=== PATIENT | female | born 1935 | race African-American/Black ===

== ENCOUNTER 2016-12-03 15:08 | Emergency (ER) | payer OTHER ==
[~2016-12-03] VITALS: Ht 165.1 cm; Wt 102.0 kg
[~2016-12-03 15:08] MED LIST: ALBU6.7H INH; BUPR150T3 PO; CLOT15CR4 TP; FELO5TAB PO; FURO20TA4 PO; GABA-533 PO; RANI150T7 PO
[2016-12-03] MEDS ORDERED: ACETAMINOPHEN 325MG TABLET PO ONE (18:15)
[2016-12-03 19:40] VITALS: BP 126/79
== END 2016-12-03 20:27 | disposition left against medical advice (07) ==
LOC: ER 16:04
DX: M79.671 Pain in right foot (principal); W01.0XXA Fall on same level from slipping, tripping and stumbling without subsequent striking against object, initial encounter; Y93.89 Activity, other specified; Y92.89 Other specified places as the place of occurrence of the external cause; I10 Essential (primary) hypertension; Z90.710 Acquired absence of both cervix and uterus; Z98.890 Other specified postprocedural states
CPT/HCPCS: 73630; 99284

== ENCOUNTER 2018-09-23 01:17 | Inpatient (IN) | payer OTHER ==
[~2018-09-23] VITALS: Ht 157.5 cm; Wt 112.2 kg
[2018-09-23] MEDS ORDERED: ONDANSETRON HCL 4MG/2ML INJ IV STA (01:33)
[2018-09-23] MEDS ORDERED: METHYLPREDNISOLONE SOD SUCC 125 MG/2 ML VIAL IV STA (01:33)
[2018-09-23] MEDS ORDERED: IPRATROPIUM BROMIDE (0.02%) 0.5MG/2.5ML NEB HHN STA (01:33)
[2018-09-23] MEDS ORDERED: MAGNESIUM 2 G PREMIX 50 ML IV ONE (01:45)
[2018-09-23] MEDS: ALBUTEROL (0.083%) 2.5MG/3ML NEB HHN SCH ×3 (01:55→04:50)
[2018-09-23 02:01] LABS: BG CARBOXYHEMOGLOBIN 0.8 % (0.5-1.5); BG DEOXYHEMOGLOBIN 8.6 % (0.0-5.0); BG FRACTION INSPIRED OXYGEN 40; BG HCO3 ACT 28.4 mmol/L (22.0-26.0); BG METHEMOGLOBIN 0.4 % (0.0-1.5); BG OXYGEN SATURATION 91.3 % (92.0-98.5); BG OXYHEMOGLOBIN 90.2 % (94.0-97.0); BG PCO2 51.7 mmHg (35.0-45.0); BG PH 7.358 (7.350-7.450); BG PO2 67.2 mmHg (75.0-100.0); BG SAMPLE SITE RIGHT RADIAL; BG TOTAL HEMOGLOBIN 13.2 g/dL (12.0-18.0); BG VENT MODE NASAL CANNULA
[2018-09-23 02:15] LABS: BASOPHILS % 0.5 % (0.0-2.0); EOSINOPHILS % 6.5 % (0.0-5.0); HEMOGLOBIN. 12.7 g/dL (12.0-16.0); LYMPHOCYTES % 26.5 % (20.0-50.0); MEAN CORPUSCULAR HEMOGLOBIN 29.2 pg (28.0-32.0); MEAN CORPUSCULAR VOLUME 92.5 fL (81.0-99.0); MEAN PLATELET VOLUME 9.1 fl (7.4-10.4); NEUTROPHILS % 56.5 % (40.0-76.0); PLATELET 235 x1000/uL (130-400); RED BLOOD CELL COUNT 4.33 mill/uL (4.2-5.4); RED CELL DISTRIBUTION WIDTH 14.7 % (11.6-14.6)
[2018-09-23 02:18] LABS: CHLORIDE 103 mEq/L (98-107)
[2018-09-23] MEDS ORDERED: IPRATROPIUM/ALBUTEROL 0.5-3(2.5)MG/3ML NEB ONE (13:25)
[2018-09-23] MEDS ORDERED: ONDANSETRON HCL 4MG/2ML INJ IV PRN (16:45)
[2018-09-23] MEDS ORDERED: DIPHENHYDRAMINE 50MG/ML VIAL IV PRN (16:45)
[2018-09-23] MEDS ORDERED: DOCUSATE SODIUM 100MG CAPSULE PO PRN (16:45)
[2018-09-23] MEDS ORDERED: HYDROCODONE/ACETAMINOPHEN 5/325MG TABLET PO PRN (16:45)
[2018-09-23] MEDS ORDERED: LORAZEPAM 0.5MG TABLET PO PRN (16:45)
[2018-09-23] MEDS ORDERED: CLONIDINE 0.1MG TABLET PO PRN (16:45)
[2018-09-23] MEDS ORDERED: CEFTRIAXONE 1 G PREMIX 50 ML IV SCH (16:45)
[2018-09-23] MEDS ORDERED: MAGNESIUM/ALUMINUM HYDROXIDE/SIMETHICONE 30ML UDC PO PRN (16:45)
[2018-09-23] MEDS ORDERED: ACETAMINOPHEN 650MG SUPP PR PRN (16:45)
[2018-09-23] MEDS ORDERED: METHYLPREDNISOLONE SOD SUCC 40 MG/ML VIAL IV SCH (16:45)
[2018-09-23] MEDS: IPRATROPIUM/ALBUTEROL 0.5-3(2.5)MG/3ML NEB INH SCH ×2 (16:45→20:38)
[2018-09-23] MEDS ORDERED: IPRATROPIUM/ALBUTEROL 0.5-3(2.5)MG/3ML NEB INH PRN (16:45)
[2018-09-23] MEDS ORDERED: ACETAMINOPHEN 325MG TABLET PO PRN (16:45)
[2018-09-23] MEDS ORDERED: AZITHROMYCIN 500 MG in DEXT 5% WATER 250 ML IV SCH (16:45)
[2018-09-23 20:00] LABS: CHLORIDE 103 mEq/L (98-107)
[2018-09-23 20:01] LABS: PROTHROMBIN TIME 9.9 sec (9.1-11.1)
[2018-09-23] MEDS ORDERED: NA PHOS,M-B/NA PHOS,DI-BA ENEMA 118ML PR PRN (21:00)
[2018-09-23 22:00] VITALS: BP 131/58
[2018-09-23 22:32] VITALS: BP 142/69
[2018-09-23] MEDS: FAMOTIDINE 20MG/2ML VIAL IV SCH (23:58)
[2018-09-23] MEDS: METHYLPREDNISOLONE SOD SUCC 40 MG/ML VIAL IV SCH (23:59)
[2018-09-24] VITALS (12 sets, daily range): BP systolic 119–156; BP diastolic 60–93
[2018-09-24] MEDS: IPRATROPIUM/ALBUTEROL 0.5-3(2.5)MG/3ML NEB INH SCH ×6 (00:25→21:55)
[2018-09-24] MEDS: AZITHROMYCIN 500 MG in DEXT 5% WATER 250 ML IV SCH ×2 (02:15→22:24)
[2018-09-24] MEDS: CEFTRIAXONE 1,000 MG in DEXTROSE 5% WATER 50 ML IV SCH ×2 (02:16→21:11)
[2018-09-24] MEDS: METHYLPREDNISOLONE SOD SUCC 40 MG/ML VIAL IV SCH ×3 (05:52→21:11)
[2018-09-24 06:54] LABS: CLARITY URINE CLEAR (CLEAR); COLOR URINE YELLOW (YELLOW); KETONES URINE NEGATIVE (NEGATIVE); LEUKOCYTE ESTERASE URINE NEGATIVE (NEGATIVE); NITRITE URINE NEGATIVE (NEGATIVE); OCCULT BLOOD URINE NEGATIVE (NEGATIVE); PH URINE 6.5 (4.5-8.0); PROTEIN URINE NEGATIVE (NEGATIVE); SPECIFIC GRAVITY URINE 1.011 (1.005-1.030); UROBILINOGEN URINE 0.2 E.U./dL (0.2-1.0)
[2018-09-24 07:10] LABS: BASOPHILS % 0.2 % (0.0-2.0); HEMATOCRIT. 36.3 % (36.0-48.0); HEMOGLOBIN. 11.4 g/dL (12.0-16.0); LYMPHOCYTES % 9.4 % (20.0-50.0); MEAN CORPUSCULAR HEMOGLOBIN 28.9 pg (28.0-32.0); MEAN CORPUSCULAR VOLUME 91.9 fL (81.0-99.0); MEAN PLATELET VOLUME 9.1 fl (7.4-10.4); NEUTROPHILS % 87.4 % (40.0-76.0); PLATELET 216 x1000/uL (130-400); RED BLOOD CELL COUNT 3.95 mill/uL (4.2-5.4); RED CELL DISTRIBUTION WIDTH 14.4 % (11.6-14.6)
[2018-09-24 07:20] LABS: CHLORIDE 103 mEq/L (98-107)
[2018-09-24 07:30] LABS: HDL CHOLESTEROL 94 mg/dL (40-59)
[2018-09-24 07:31] LABS: LDL CHOLESTEROL 61 mg/dL (5-100)
[2018-09-24 07:33] LABS: T4 FREE 1.19 ng/dL (0.76-1.46)
[2018-09-24 07:34] LABS: *AMPHETAMINES SCREEN URINE NEGATIVE (NEGATIVE); *BARBITURATES SCREEN URINE NEGATIVE (NEGATIVE); *BENZODIAZEPINES SCREEN URINE NEGATIVE (NEGATIVE); CANNABINOID URINE SCREEN NEGATIVE (NEGATIVE); METHADONE URINE SCREEN NEGATIVE (NEGATIVE); OPIATES URINE SCREEN NEGATIVE (NEGATIVE); PHENCYCLIDINE URINE SCREEN NEGATIVE (NEGATIVE)
[2018-09-24 07:35] LABS: *COCAINE SCREEN URINE NEGATIVE (NEGATIVE)
[2018-09-24] MEDS: LORATADINE 10MG TABLET PO SCH (07:49)
[2018-09-24] MEDS: AMLODIPINE 5MG TABLET PO SCH (07:49)
[2018-09-24] MEDS: FAMOTIDINE 20MG/2ML VIAL IV SCH ×2 (07:49→20:54)
[2018-09-24] MEDS: GUAIFENESIN 200MG/10ML SUGAR FREE UDC PO PRN ×3 (12:22→22:28)
[2018-09-24] MEDS: MONTELUKAST SODIUM 10MG TABLET PO SCH (16:52)
[2018-09-24] MEDS: GUAIFENESIN 600MG ER TABLET PO SCH (20:53)
[2018-09-24] MEDS: ENOXAPARIN 30MG/0.3ML SYR SUBCUT SCH (20:54)
[2018-09-25] VITALS (12 sets, daily range): BP systolic 125–156; BP diastolic 68–93
[2018-09-25] MEDS: IPRATROPIUM/ALBUTEROL 0.5-3(2.5)MG/3ML NEB INH SCH ×5 (02:35→21:01)
[2018-09-25] MEDS: METHYLPREDNISOLONE SOD SUCC 40 MG/ML VIAL IV SCH ×3 (05:51→21:11)
[2018-09-25 07:31] LABS: HEMATOCRIT 36.1 % (36.0-48.0); HEMOGLOBIN 11.4 g/dL (12.0-16.0); MEAN CORPUSCULAR HEMOGLOBIN 29.2 pg (28.0-32.0); MEAN CORPUSCULAR VOLUME 92.7 fL (81.0-99.0); PLATELET 222 x1000/uL (130-400); RED BLOOD CELL COUNT 3.89 mill/uL (4.2-5.4); RED CELL DISTRIBUTION WIDTH 14.8 % (11.6-14.6)
[2018-09-25 07:35] LABS: CHLORIDE 103 mEq/L (98-107)
[2018-09-25] MEDS: LORATADINE 10MG TABLET PO SCH (08:45)
[2018-09-25] MEDS: FAMOTIDINE 20MG/2ML VIAL IV SCH ×2 (08:46→21:11)
[2018-09-25] MEDS: AMLODIPINE 5MG TABLET PO SCH (08:46)
[2018-09-25] MEDS: GUAIFENESIN 600MG ER TABLET PO SCH ×2 (08:46→21:11)
[2018-09-25] MEDS: ENOXAPARIN 30MG/0.3ML SYR SUBCUT SCH ×2 (08:47→21:11)
[2018-09-25] MEDS: GUAIFENESIN 200MG/10ML SUGAR FREE UDC PO PRN (12:47)
[2018-09-25] MEDS ORDERED: MEDICATION NOT ON FORMULARY EA (Furosemide 20 MG) PO SCH (15:00)
[2018-09-25] MEDS: BUDESONIDE 0.5MG/2ML NEB HHN SCH ×2 (16:03→21:01)
[2018-09-25] MEDS ORDERED: BUPROPION HCL PO SCH (17:00)
[2018-09-25] MEDS ORDERED: MEDICATION NOT ON FORMULARY EA (Gabapentin 1 CAP) PO SCH (17:00)
[2018-09-25] MEDS: GABAPENTIN 400MG CAPSULE PO SCH (17:24)
[2018-09-25] MEDS: MONTELUKAST SODIUM 10MG TABLET PO SCH (17:24)
[2018-09-25] MEDS: FUROSEMIDE 20MG TABLET PO SCH (17:24)
[2018-09-25] MEDS: BUPROPION HCL 150MG SR TABLET PO SCH (17:48)
[2018-09-25] MEDS: LEVOFLOXACIN 500MG PREMIX 100 ML IV SCH (17:49)
[2018-09-26] VITALS (11 sets, daily range): BP systolic 117–147; BP diastolic 65–85
[2018-09-26] MEDS: IPRATROPIUM/ALBUTEROL 0.5-3(2.5)MG/3ML NEB INH SCH ×5 (01:06→16:08)
[2018-09-26 07:02] LABS: HEMATOCRIT 36.4 % (36.0-48.0); HEMOGLOBIN 11.6 g/dL (12.0-16.0); MEAN CORPUSCULAR HEMOGLOBIN 29.4 pg (28.0-32.0); MEAN CORPUSCULAR VOLUME 92.5 fL (81.0-99.0); PLATELET 225 x1000/uL (130-400); RED BLOOD CELL COUNT 3.94 mill/uL (4.2-5.4); RED CELL DISTRIBUTION WIDTH 14.6 % (11.6-14.6)
[2018-09-26 07:45] LABS: CHLORIDE 102 mEq/L (98-107)
[2018-09-26] MEDS: FAMOTIDINE 20MG/2ML VIAL IV SCH (07:54)
[2018-09-26] MEDS: FUROSEMIDE 20MG TABLET PO SCH (07:54)
[2018-09-26] MEDS: AMLODIPINE 5MG TABLET PO SCH (07:55)
[2018-09-26] MEDS: GABAPENTIN 400MG CAPSULE PO SCH ×3 (07:55→16:38)
[2018-09-26] MEDS: BUPROPION HCL 150MG SR TABLET PO SCH ×2 (07:55→16:38)
[2018-09-26] MEDS: GUAIFENESIN 600MG ER TABLET PO SCH (07:56)
[2018-09-26] MEDS: ENOXAPARIN 30MG/0.3ML SYR SUBCUT SCH (07:56)
[2018-09-26] MEDS: LORATADINE 10MG TABLET PO SCH (08:16)
[2018-09-26] MEDS: BUDESONIDE 0.5MG/2ML NEB HHN SCH (08:44)
[2018-09-26] MEDS ORDERED: FELODIPINE PO SCH (09:00)
[2018-09-26] MEDS: METHYLPREDNISOLONE SOD SUCC 40 MG/ML VIAL IV SCH (10:21)
[2018-09-26] MEDS: MONTELUKAST SODIUM 10MG TABLET PO SCH (16:38)
[2018-09-26] MEDS: LEVOFLOXACIN 500MG PREMIX 100 ML IV SCH (16:39)
== END 2018-09-26 18:56 | disposition home or self-care (01) | DRG 190 ==
LOC: ER 01:34 → 3WST 03:13 → EDBEDREQ 03:16 → EDBEDREQTM 03:16 → ENRESERV 17:26
PROVIDERS: ADMIT Internal Medicine; ATTEND Internal Medicine
PROC: 5A09357 Assistance with Respiratory Ventilation, Less than 24 Consecutive Hours, Continuous Positive Airway Pressure (ICD-10-PCS; principal; 2018-09-23)
PROC: 5A09357 Assistance with Respiratory Ventilation, Less than 24 Consecutive Hours, Continuous Positive Airway Pressure (ICD-10-PCS; 2018-09-25)
PROC: 5A09357 Assistance with Respiratory Ventilation, Less than 24 Consecutive Hours, Continuous Positive Airway Pressure (ICD-10-PCS; 2018-09-26)
DX: J44.0 Chronic obstructive pulmonary disease with (acute) lower respiratory infection (principal); J96.01 Acute respiratory failure with hypoxia; J18.1 Lobar pneumonia, unspecified organism; I50.33 Acute on chronic diastolic (congestive) heart failure; J45.901 Unspecified asthma with (acute) exacerbation; E87.2 Acidosis; I11.0 Hypertensive heart disease with heart failure; J44.1 Chronic obstructive pulmonary disease with (acute) exacerbation; I27.20 Pulmonary hypertension, unspecified; D72.1 Eosinophilia; Z99.81 Dependence on supplemental oxygen; Z87.891 Personal history of nicotine dependence
CPT/HCPCS: 36415; 36600; 71045; 80048; 80061; 80305; 82375; 82805; 83036; 83605; 83880; 84439; 84443; 84484; 85027; 87804; 93005; 93306; 93970; 94640; 94660; 96365; 96375; 99291; J0456; J0696; J1650; J1956; J2405; J2920; J2930; J3475; J3490; J7050; J7060; J7611; J7620; J7626

== ENCOUNTER 2018-11-21 12:16 | Inpatient (IN) | payer OTHER ==
[~2018-11-21] VITALS: Ht 165.1 cm; Wt 109.1 kg
[2018-11-21] MEDS ORDERED: MORPHINE SULFATE 4 MG/ML CPJ (NOT FOR IM USE) IV ONE (12:45)
[2018-11-21 13:06] LABS: BASOPHILS % 0.6 % (0.0-2.0); EOSINOPHILS % 0.8 % (0.0-5.0); HEMATOCRIT. 37.3 % (36.0-48.0); HEMOGLOBIN. 12.1 g/dL (12.0-16.0); LYMPHOCYTES % 15.3 % (20.0-50.0); MEAN CORPUSCULAR HEMOGLOBIN 29.4 pg (28.0-32.0); MEAN CORPUSCULAR VOLUME 90.1 fL (81.0-99.0); MEAN PLATELET VOLUME 8.1 fl (7.4-10.4); MONOCYTES % 12.6 % (2.0-8.0); NEUTROPHILS % 70.7 % (40.0-76.0); PLATELET 486 x1000/uL (130-400); RED BLOOD CELL COUNT 4.14 mill/uL (4.2-5.4); RED CELL DISTRIBUTION WIDTH 14.7 % (11.6-14.6)
[2018-11-21 13:17] LABS: CHLORIDE 99 mEq/L (98-107)
[2018-11-21] MEDS ORDERED: IPRATROPIUM BROMIDE (0.02%) 0.5MG/2.5ML NEB HHN STA (13:34)
[2018-11-21] MEDS ORDERED: ALBUTEROL (0.083%) 2.5MG/3ML NEB HHN STA (13:34)
[2018-11-21] MEDS ORDERED: METHYLPREDNISOLONE SOD SUCC 125 MG/2 ML VIAL IV STA (13:34)
[2018-11-21 13:39] LABS: BG BASE EXCESS 8.2 mmol/L (-2.0-2.0); BG CARBOXYHEMOGLOBIN 0.6 % (0.5-1.5); BG FRACTION INSPIRED OXYGEN 36; BG HCO3 ACT 33.6 mmol/L (22.0-26.0); BG METHEMOGLOBIN 0.3 % (0.0-1.5); BG OXYGEN SATURATION 91.9 % (92.0-98.5); BG OXYHEMOGLOBIN 91.1 % (94.0-97.0); BG PCO2 50.3 mmHg (35.0-45.0); BG PH 7.443 (7.350-7.450); BG PO2 61.1 mmHg (75.0-100.0); BG SAMPLE SITE RIGHT BRACHIAL; BG TOTAL HEMOGLOBIN 12.4 g/dL (12.0-18.0); BG VENT MODE NASAL CANNULA
[2018-11-21] MEDS ORDERED: LEVOFLOXACIN 750MG PREMIX 150 ML IV ONE (14:00)
[2018-11-21] MEDS ORDERED: LORAZEPAM 0.5MG TABLET PO PRN (17:30)
[2018-11-21] MEDS ORDERED: IPRATROPIUM/ALBUTEROL 0.5-3(2.5)MG/3ML NEB INH PRN (17:30)
[2018-11-21] MEDS ORDERED: GUAIFENESIN 200MG/10ML SUGAR FREE UDC PO PRN (17:30)
[2018-11-21] MEDS ORDERED: ACETAMINOPHEN 650MG SUPP PR PRN (17:30)
[2018-11-21] MEDS ORDERED: DIPHENHYDRAMINE 50MG/ML VIAL IV PRN (17:30)
[2018-11-21] MEDS ORDERED: DOCUSATE SODIUM 100MG CAPSULE PO PRN (17:30)
[2018-11-21] MEDS ORDERED: ACETAMINOPHEN 325MG TABLET PO PRN (17:30)
[2018-11-21] MEDS ORDERED: NA PHOS,M-B/NA PHOS,DI-BA ENEMA 118ML PR PRN (17:30)
[2018-11-21] MEDS ORDERED: CLONIDINE 0.1MG TABLET PO PRN (17:30)
[2018-11-21] MEDS ORDERED: ONDANSETRON HCL 4MG/2ML INJ IV PRN (17:30)
[2018-11-21] MEDS ORDERED: MAGNESIUM/ALUMINUM HYDROXIDE/SIMETHICONE 30ML UDC PO PRN (17:30)
[2018-11-21 18:00] VITALS: BP 131/77
[2018-11-21 20:00] VITALS: BP 139/78
[2018-11-21] MEDS: IPRATROPIUM/ALBUTEROL 0.5-3(2.5)MG/3ML NEB INH SCH (20:16)
[2018-11-21] MEDS: FAMOTIDINE 20MG/2ML VIAL IV SCH (20:42)
[2018-11-21] MEDS: METHYLPREDNISOLONE SOD SUCC 40 MG/ML VIAL IV SCH (20:42)
[2018-11-21] MEDS: ENOXAPARIN 30MG/0.3ML SYR SUBCUT SCH (20:43)
[2018-11-21 22:00] VITALS: BP 143/84
[2018-11-22] VITALS (11 sets, daily range): BP systolic 122–148; BP diastolic 65–90
[2018-11-22] MEDS: IPRATROPIUM/ALBUTEROL 0.5-3(2.5)MG/3ML NEB INH SCH ×5 (00:17→20:20)
[2018-11-22 01:35] LABS: CREATINE KINASE 43 IU/L (26-192)
[2018-11-22 01:36] LABS: CREATINE KINASE MB FRACTION < 1.0 ng/mL (0.5-3.6)
[2018-11-22] MEDS: METHYLPREDNISOLONE SOD SUCC 40 MG/ML VIAL IV SCH ×3 (04:25→20:58)
[2018-11-22] MEDS: HYDROCODONE/ACETAMINOPHEN 5/325MG TABLET PO PRN ×2 (07:33→20:59)
[2018-11-22] MEDS: ENOXAPARIN 30MG/0.3ML SYR SUBCUT SCH ×2 (08:30→20:58)
[2018-11-22] MEDS: FAMOTIDINE 20MG/2ML VIAL IV SCH ×2 (08:30→20:58)
[2018-11-22] MEDS: ASPIRIN 81MG EC TABLET PO SCH (08:30)
[2018-11-22] MEDS: AMLODIPINE 5MG TABLET PO SCH (08:33)
[2018-11-22 09:17] LABS: BG BASE EXCESS 3.6 mmol/L (-2.0-2.0); BG CARBOXYHEMOGLOBIN 0.3 % (0.5-1.5); BG DEOXYHEMOGLOBIN 4.3 % (0.0-5.0); BG FRACTION INSPIRED OXYGEN 28; BG HCO3 ACT 27.6 mmol/L (22.0-26.0); BG METHEMOGLOBIN 0.5 % (0.0-1.5); BG OXYGEN SATURATION 95.7 % (92.0-98.5); BG OXYHEMOGLOBIN 94.9 % (94.0-97.0); BG PCO2 39.3 mmHg (35.0-45.0); BG PH 7.464 (7.350-7.450); BG PO2 77.1 mmHg (75.0-100.0); BG SAMPLE SITE RIGHT RADIAL; BG TOTAL HEMOGLOBIN 12.4 g/dL (12.0-18.0); BG VENT MODE NASAL CANNULA
[2018-11-22 10:32] LABS: BASOPHILS % 0.1 % (0.0-2.0); HEMOGLOBIN. 11.4 g/dL (12.0-16.0); LYMPHOCYTES % 12.9 % (20.0-50.0); MEAN CORPUSCULAR HEMOGLOBIN 29.4 pg (28.0-32.0); MEAN PLATELET VOLUME 8.2 fl (7.4-10.4); PLATELET 496 x1000/uL (130-400); RED BLOOD CELL COUNT 3.88 mill/uL (4.2-5.4); RED CELL DISTRIBUTION WIDTH 14.3 % (11.6-14.6)
[2018-11-22 10:51] LABS: CHLORIDE 99 mEq/L (98-107)
[2018-11-22] MEDS ORDERED: LEVOFLOXACIN 500MG PREMIX 100 ML IV SCH (11:00)
[2018-11-22 11:06] LABS: LDL CHOLESTEROL 72 mg/dL (5-100)
[2018-11-22 11:07] LABS: CREATINE KINASE 39 IU/L (26-192); CREATINE KINASE MB FRACTION < 1.0 ng/mL (0.5-3.6)
[2018-11-22 11:09] LABS: HDL CHOLESTEROL 64 mg/dL (40-59)
[2018-11-22 11:15] LABS: T4 FREE 1.49 ng/dL (0.76-1.46)
[2018-11-22] MEDS ORDERED: IOHEXOL-350 100 ML BOTTLE ONE (11:41)
[2018-11-23] VITALS (9 sets, daily range): BP systolic 121–137; BP diastolic 65–85
[2018-11-23] MEDS: IPRATROPIUM/ALBUTEROL 0.5-3(2.5)MG/3ML NEB INH SCH ×4 (00:20→14:06)
[2018-11-23] MEDS: METHYLPREDNISOLONE SOD SUCC 40 MG/ML VIAL IV SCH ×2 (06:20→12:24)
[2018-11-23 07:01] LABS: PROTHROMBIN TIME 10.4 sec (9.6-11.0)
[2018-11-23 07:09] LABS: HEMATOCRIT 35.4 % (36.0-48.0); HEMOGLOBIN 11.3 g/dL (12.0-16.0); MEAN CORPUSCULAR HEMOGLOBIN 28.8 pg (28.0-32.0); MEAN CORPUSCULAR VOLUME 90.3 fL (81.0-99.0); PLATELET 517 x1000/uL (130-400); RED BLOOD CELL COUNT 3.93 mill/uL (4.2-5.4); RED CELL DISTRIBUTION WIDTH 14.5 % (11.6-14.6)
[2018-11-23] MEDS: AMLODIPINE 5MG TABLET PO SCH (08:16)
[2018-11-23] MEDS: ASPIRIN 81MG EC TABLET PO SCH (08:16)
[2018-11-23] MEDS: FAMOTIDINE 20MG/2ML VIAL IV SCH (08:16)
[2018-11-23] MEDS: ENOXAPARIN 30MG/0.3ML SYR SUBCUT SCH (08:18)
[2018-11-23] MEDS ORDERED: LEVOFLOXACIN 250MG PREMIX 50 ML IV SCH (12:30)
== END 2018-11-23 17:36 | disposition home or self-care (01) | DRG 193 ==
LOC: ER 12:16 → 5EST 14:04 → EDBEDREQ 14:14 → EDBEDREQTM 14:14 → ENRESERV 17:14
PROVIDERS: ADMIT Internal Medicine; ATTEND Internal Medicine
PROC: 5A09357 Assistance with Respiratory Ventilation, Less than 24 Consecutive Hours, Continuous Positive Airway Pressure (ICD-10-PCS; principal; 2018-11-21)
PROC: 5A09357 Assistance with Respiratory Ventilation, Less than 24 Consecutive Hours, Continuous Positive Airway Pressure (ICD-10-PCS; 2018-11-22)
DX: J18.1 Lobar pneumonia, unspecified organism (principal); I50.33 Acute on chronic diastolic (congestive) heart failure; J96.90 Respiratory failure, unspecified, unspecified whether with hypoxia or hypercapnia; J44.0 Chronic obstructive pulmonary disease with (acute) lower respiratory infection; J44.1 Chronic obstructive pulmonary disease with (acute) exacerbation; E87.3 Alkalosis; J45.901 Unspecified asthma with (acute) exacerbation; E66.2 Morbid (severe) obesity with alveolar hypoventilation; Z68.41 Body mass index [BMI] 40.0-44.9, adult; I11.0 Hypertensive heart disease with heart failure; R73.9 Hyperglycemia, unspecified; I27.20 Pulmonary hypertension, unspecified; Z87.891 Personal history of nicotine dependence; Z99.81 Dependence on supplemental oxygen; Z79.899 Other long term (current) drug therapy
CPT/HCPCS: 36415; 36600; 71045; 71275; 80048; 80061; 82375; 82550; 82553; 82805; 83880; 84439; 84443; 84484; 85027; 93005; 94640; 94660; 99291; J1650; J1956; J2270; J2920; J2930; J3490; J7050; J7611; J7620; Q9967

== ENCOUNTER 2019-09-07 12:00 | Inpatient (IN) | payer OTHER, MEDICAID ==
[~2019-09-07] VITALS: Ht 167.6 cm; Wt 107.0 kg
[~2019-09-07 12:00] MED LIST changes: -ALBU6.7H INH; +ALBU6.7H11 INH; -FELO5TAB PO; +FELO5TAB46 PO
[2019-09-07] MEDS ORDERED: METHYLPREDNISOLONE SOD SUCC 125 MG/2 ML VIAL IV STA (13:46)
[2019-09-07] MEDS ORDERED: ALBUTEROL (0.083%) 2.5MG/3ML NEB HHN STA (13:46)
[2019-09-07] MEDS ORDERED: MAGNESIUM 2 G PREMIX 50 ML IV STA (13:46)
[2019-09-07] MEDS ORDERED: IPRATROPIUM BROMIDE (0.02%) 0.5MG/2.5ML NEB HHN STA (13:46)
[2019-09-07 14:41] LABS: BASOPHILS % 0.7 % (0.0-2.0); EOSINOPHILS % 10.3 % (0.0-5.0); HEMATOCRIT. 40.6 % (36.0-48.0); HEMOGLOBIN. 12.8 g/dL (12.0-16.0); LYMPHOCYTES % 29.1 % (20.0-50.0); MEAN CORPUSCULAR HEMOGLOBIN 28.7 pg (28.0-32.0); MEAN CORPUSCULAR VOLUME 90.7 fL (81.0-99.0); MEAN PLATELET VOLUME 8.9 fl (7.4-10.4); MONOCYTES % 10.1 % (2.0-8.0); NEUTROPHILS % 49.8 % (40.0-76.0); PLATELET 248 x1000/uL (130-400); RED BLOOD CELL COUNT 4.48 mill/uL (4.2-5.4)
[2019-09-07 14:47] LABS: CHLORIDE 104 mEq/L (98-107)
[2019-09-07] MEDS ORDERED: CEFTRIAXONE 1 G PREMIX 50 ML IV ONE (15:30)
[2019-09-07] MEDS ORDERED: AZITHROMYCIN 500 MG in DEXT 5% WATER 250 ML IV SCH (15:30)
[2019-09-07 16:13] LABS: BG BASE EXCESS 3.1 mmol/L (-2.0-2.0); BG CARBOXYHEMOGLOBIN 0.6 % (0.5-1.5); BG DEOXYHEMOGLOBIN 5.2 % (0.0-5.0); BG FRACTION INSPIRED OXYGEN 28; BG HCO3 ACT 29.1 mmol/L (22.0-26.0); BG METHEMOGLOBIN 0.2 % (0.0-1.5); BG OXYGEN SATURATION 94.8 % (92.0-98.5); BG PCO2 49.9 mmHg (35.0-45.0); BG PH 7.383 (7.350-7.450); BG PO2 74.8 mmHg (75.0-100.0); BG SAMPLE SITE RIGHT RADIAL; BG TOTAL HEMOGLOBIN 12.9 g/dL (12.0-18.0); BG VENT MODE NASAL CANNULA
[2019-09-07 21:10] VITALS: BP 132/86
[2019-09-07] MEDS ORDERED: ACETAMINOPHEN 325MG TABLET PO PRN (22:15)
[2019-09-07] MEDS: GUAIFENESIN 200MG/10ML SUGAR FREE UDC PO PRN (23:18)
[2019-09-07] MEDS: IPRATROPIUM/ALBUTEROL 0.5-3(2.5)MG/3ML NEB HHN PRN (23:31)
[2019-09-08] VITALS: BP 119/75
[2019-09-08] MEDS ORDERED: FURO20TA4 PO (00:37)
[2019-09-08] MEDS ORDERED: FELO10TA45 PO (00:37)
[2019-09-08 04:00] VITALS: BP 146/88
[2019-09-08 06:52] LABS: BASOPHILS % 0.3 % (0.0-2.0); HEMATOCRIT. 39.6 % (36.0-48.0); HEMOGLOBIN. 12.6 g/dL (12.0-16.0); LYMPHOCYTES % 23.3 % (20.0-50.0); MEAN CORPUSCULAR HEMOGLOBIN 28.5 pg (28.0-32.0); MEAN CORPUSCULAR VOLUME 89.9 fL (81.0-99.0); MEAN PLATELET VOLUME 8.9 fl (7.4-10.4); MONOCYTES % 7.4 % (2.0-8.0); PLATELET 262 x1000/uL (130-400); RED BLOOD CELL COUNT 4.41 mill/uL (4.2-5.4)
[2019-09-08 07:06] LABS: CHLORIDE 104 mEq/L (98-107)
[2019-09-08] MEDS: IPRATROPIUM/ALBUTEROL 0.5-3(2.5)MG/3ML NEB HHN PRN ×2 (08:37→14:18)
[2019-09-08] MEDS: GUAIFENESIN 200MG/10ML SUGAR FREE UDC PO PRN ×2 (08:41→16:33)
[2019-09-08] MEDS: ENOXAPARIN 40MG/0.4ML SYR SUBCUT SCH (08:41)
[2019-09-08] MEDS: GABAPENTIN 400MG CAPSULE PO SCH ×3 (08:41→16:33)
[2019-09-08] MEDS: BUPROPION HCL 150MG SR TABLET PO SCH ×2 (08:41→21:43)
[2019-09-08] MEDS: AMLODIPINE 10MG TABLET PO SCH (08:41)
[2019-09-08] MEDS ORDERED: PREDNISONE 20MG TABLET PO SCH (09:00)
[2019-09-08] MEDS ORDERED: NON FORMULARY PATIENT HOME MED PO SCH (09:00)
[2019-09-08] MEDS ORDERED: LEVOFLOXACIN 500MG TABLET PO SCH (11:00)
[2019-09-08 12:00] VITALS: BP 127/50
[2019-09-08 16:00] VITALS: BP 146/77
[2019-09-08] MEDS ORDERED: FAMO20TA8 MT (16:38)
[2019-09-08] MEDS ORDERED: FLUT12AE3 INH (16:38)
[2019-09-08] MEDS ORDERED: HYDROCODONE/ACETAMINOPHEN 5/325MG TABLET PO PRN (18:15)
[2019-09-08] MEDS ORDERED: HYDRALAZINE 20MG/ML VIAL IV PRN (18:15)
[2019-09-08] MEDS ORDERED: LACTULOSE 20G/30ML UDC PO PRN (18:15)
[2019-09-08] MEDS ORDERED: LORAZEPAM 2MG/ML CPJ IV PRN (18:15)
[2019-09-08 20:00] VITALS: BP 124/77
[2019-09-08] MEDS: METHYLPREDNISOLONE SOD SUCC 40 MG/ML VIAL IV SCH (21:43)
[2019-09-08] MEDS: FAMOTIDINE 20MG TABLET PO SCH (21:43)
[2019-09-08] MEDS: IPRATROPIUM/ALBUTEROL 0.5-3(2.5)MG/3ML NEB HHN SCH (22:15)
[2019-09-08] MEDS: BUDESONIDE 0.5MG/2ML NEB HHN SCH (22:16)
[2019-09-09] VITALS: BP 115/57
[2019-09-09] MEDS: IPRATROPIUM/ALBUTEROL 0.5-3(2.5)MG/3ML NEB HHN SCH ×4 (02:06→21:11)
[2019-09-09 04:00] VITALS: BP 128/72
[2019-09-09] MEDS: METHYLPREDNISOLONE SOD SUCC 40 MG/ML VIAL IV SCH ×3 (05:31→21:50)
[2019-09-09 07:22] LABS: CHLORIDE 104 mEq/L (98-107)
[2019-09-09 07:25] LABS: HEMATOCRIT 38.1 % (36.0-48.0); HEMOGLOBIN 11.8 g/dL (12.0-16.0); MEAN CORPUSCULAR VOLUME 90.4 fL (81.0-99.0); PLATELET 249 x1000/uL (130-400); RED BLOOD CELL COUNT 4.21 mill/uL (4.2-5.4); RED CELL DISTRIBUTION WIDTH 14.3 % (11.6-14.6)
[2019-09-09 08:00] VITALS: BP 118/62
[2019-09-09] MEDS: BUDESONIDE 0.5MG/2ML NEB HHN SCH ×2 (08:15→21:11)
[2019-09-09] MEDS: ENOXAPARIN 40MG/0.4ML SYR SUBCUT SCH (08:56)
[2019-09-09] MEDS: GABAPENTIN 400MG CAPSULE PO SCH ×3 (08:56→17:19)
[2019-09-09] MEDS: AMLODIPINE 10MG TABLET PO SCH (08:56)
[2019-09-09] MEDS: BUPROPION HCL 150MG SR TABLET PO SCH ×2 (08:56→21:50)
[2019-09-09] MEDS: GUAIFENESIN 200MG/10ML SUGAR FREE UDC PO PRN ×2 (10:33→21:50)
[2019-09-09] MEDS: LEVOFLOXACIN 250MG TABLET PO SCH (10:33)
[2019-09-09 12:00] VITALS: BP 135/75
[2019-09-09 16:00] VITALS: BP 122/73
[2019-09-09 20:00] VITALS: BP 145/79
[2019-09-09] MEDS: FAMOTIDINE 20MG TABLET PO SCH (21:50)
[2019-09-10] VITALS (7 sets, daily range): BP systolic 120–140; BP diastolic 69–80
[2019-09-10] MEDS: IPRATROPIUM/ALBUTEROL 0.5-3(2.5)MG/3ML NEB HHN SCH ×4 (04:15→20:10)
[2019-09-10] MEDS: METHYLPREDNISOLONE SOD SUCC 40 MG/ML VIAL IV SCH ×3 (06:10→21:30)
[2019-09-10 08:22] LABS: BASOPHILS % 0.1 % (0.0-2.0); HEMATOCRIT. 39.6 % (36.0-48.0); HEMOGLOBIN. 12.5 g/dL (12.0-16.0); LYMPHOCYTES % 12.4 % (20.0-50.0); MEAN CORPUSCULAR HEMOGLOBIN 28.6 pg (28.0-32.0); MEAN CORPUSCULAR VOLUME 90.5 fL (81.0-99.0); MEAN PLATELET VOLUME 9.3 fl (7.4-10.4); MONOCYTES % 4.4 % (2.0-8.0); NEUTROPHILS % 83.1 % (40.0-76.0); PLATELET 275 x1000/uL (130-400); RED BLOOD CELL COUNT 4.38 mill/uL (4.2-5.4); RED CELL DISTRIBUTION WIDTH 14.3 % (11.6-14.6)
[2019-09-10 08:36] LABS: PROTHROMBIN TIME 10.1 sec (9.6-11.0)
[2019-09-10] MEDS: BUPROPION HCL 150MG SR TABLET PO SCH ×2 (08:44→21:30)
[2019-09-10] MEDS: GUAIFENESIN 200MG/10ML SUGAR FREE UDC PO PRN ×2 (08:44→17:00)
[2019-09-10] MEDS: GABAPENTIN 400MG CAPSULE PO SCH ×3 (08:45→17:00)
[2019-09-10] MEDS: ENOXAPARIN 40MG/0.4ML SYR SUBCUT SCH (08:45)
[2019-09-10] MEDS: AMLODIPINE 10MG TABLET PO SCH (08:45)
[2019-09-10] MEDS: BUDESONIDE 0.5MG/2ML NEB HHN SCH ×2 (08:54→20:10)
[2019-09-10] MEDS: LEVOFLOXACIN 250MG TABLET PO SCH (11:08)
[2019-09-10 11:30] LABS: CLARITY URINE CLEAR (CLEAR); COLOR URINE YELLOW (YELLOW); KETONES URINE NEGATIVE (NEGATIVE); LEUKOCYTE ESTERASE URINE NEGATIVE (NEGATIVE); NITRITE URINE NEGATIVE (NEGATIVE); OCCULT BLOOD URINE NEGATIVE (NEGATIVE); PH URINE 5.5 (4.5-8.0); PROTEIN URINE NEGATIVE (NEGATIVE); SPECIFIC GRAVITY URINE 1.026 (1.005-1.030); UROBILINOGEN URINE 0.2 E.U./dL (0.2-1.0)
[2019-09-10 12:28] LABS: *AMPHETAMINES SCREEN URINE NEGATIVE (NEGATIVE)
[2019-09-10 12:29] LABS: *BARBITURATES SCREEN URINE NEGATIVE (NEGATIVE); *BENZODIAZEPINES SCREEN URINE NEGATIVE (NEGATIVE); *COCAINE SCREEN URINE NEGATIVE (NEGATIVE); METHADONE URINE SCREEN NEGATIVE (NEGATIVE); OPIATES URINE SCREEN NEGATIVE (NEGATIVE); PHENCYCLIDINE URINE SCREEN NEGATIVE (NEGATIVE)
[2019-09-10 12:30] LABS: CANNABINOID URINE SCREEN NEGATIVE (NEGATIVE)
[2019-09-10] MEDS: FAMOTIDINE 20MG TABLET PO SCH (21:30)
[2019-09-10] MEDS: ENOXAPARIN 30MG/0.3ML SYR SUBCUT SCH (21:35)
[2019-09-11] VITALS: BP 121/70
[2019-09-11 04:00] VITALS: BP 118/63
[2019-09-11] MEDS: METHYLPREDNISOLONE SOD SUCC 40 MG/ML VIAL IV SCH ×3 (05:47→20:24)
[2019-09-11 07:51] LABS: CHLORIDE 103 mEq/L (98-107)
[2019-09-11 08:00] VITALS: BP 136/74
[2019-09-11] MEDS: IPRATROPIUM/ALBUTEROL 0.5-3(2.5)MG/3ML NEB HHN SCH ×3 (08:05→21:03)
[2019-09-11] MEDS: BUDESONIDE 0.5MG/2ML NEB HHN SCH ×2 (08:05→21:03)
[2019-09-11 08:12] LABS: BASOPHILS % 0.3 % (0.0-2.0); HEMATOCRIT. 38.4 % (36.0-48.0); HEMOGLOBIN. 12.4 g/dL (12.0-16.0); LYMPHOCYTES % 12.4 % (20.0-50.0); MEAN CORPUSCULAR HEMOGLOBIN 29.3 pg (28.0-32.0); MEAN CORPUSCULAR VOLUME 90.5 fL (81.0-99.0); MONOCYTES % 7.1 % (2.0-8.0); NEUTROPHILS % 80.2 % (40.0-76.0); RED BLOOD CELL COUNT 4.25 mill/uL (4.2-5.4)
[2019-09-11] MEDS: BUPROPION HCL 150MG SR TABLET PO SCH ×2 (09:51→20:24)
[2019-09-11] MEDS: GABAPENTIN 400MG CAPSULE PO SCH ×3 (09:51→17:54)
[2019-09-11] MEDS: AMLODIPINE 10MG TABLET PO SCH (09:52)
[2019-09-11] MEDS: ENOXAPARIN 30MG/0.3ML SYR SUBCUT SCH ×2 (09:52→20:25)
[2019-09-11 10:08] LABS: PLATELET 237 x1000/uL (130-400)
[2019-09-11 12:00] VITALS: BP 144/77
[2019-09-11] MEDS: LEVOFLOXACIN 250MG TABLET PO SCH (13:15)
[2019-09-11 16:00] VITALS: BP 141/80
[2019-09-11] MEDS: GUAIFENESIN 200MG/10ML SUGAR FREE UDC PO PRN (19:02)
[2019-09-11 20:00] VITALS: BP 144/69
[2019-09-11] MEDS: FAMOTIDINE 20MG TABLET PO SCH (20:24)
[2019-09-12] VITALS: BP 126/66
[2019-09-12] MEDS: IPRATROPIUM/ALBUTEROL 0.5-3(2.5)MG/3ML NEB HHN SCH ×2 (00:41→11:57)
[2019-09-12 04:00] VITALS: BP 132/69
[2019-09-12] MEDS: METHYLPREDNISOLONE SOD SUCC 40 MG/ML VIAL IV SCH ×2 (05:25→14:31)
[2019-09-12] MEDS: IPRATROPIUM/ALBUTEROL 0.5-3(2.5)MG/3ML NEB HHN PRN (05:29)
[2019-09-12] MEDS: ENOXAPARIN 30MG/0.3ML SYR SUBCUT SCH (09:41)
[2019-09-12] MEDS: AMLODIPINE 10MG TABLET PO SCH (09:42)
[2019-09-12] MEDS: GABAPENTIN 400MG CAPSULE PO SCH ×2 (09:42→12:56)
[2019-09-12] MEDS: BUPROPION HCL 150MG SR TABLET PO SCH (09:42)
[2019-09-12] MEDS: LEVOFLOXACIN 250MG TABLET PO SCH (11:24)
[2019-09-12] MEDS ORDERED: P20 PO (13:59)
[2019-09-12] MEDS ORDERED: IPRA3AMP9 NEB (13:59)
[2019-09-12 15:47] VITALS: BP 140/76
== END 2019-09-12 17:40 | disposition home or self-care (01) | DRG 190 ==
LOC: ER 12:00 → ENRESERV 20:13 → 5WST 20:51
PROVIDERS: ADMIT Internal Medicine; ATTEND Internal Medicine
DX: J44.1 Chronic obstructive pulmonary disease with (acute) exacerbation (principal); J18.9 Pneumonia, unspecified organism; E66.9 Obesity, unspecified; I10 Essential (primary) hypertension; I71.2 Thoracic aortic aneurysm, without rupture; J44.0 Chronic obstructive pulmonary disease with (acute) lower respiratory infection; J84.10 Pulmonary fibrosis, unspecified; Z99.81 Dependence on supplemental oxygen; Z90.710 Acquired absence of both cervix and uterus; Z68.38 Body mass index [BMI] 38.0-38.9, adult; Z79.899 Other long term (current) drug therapy
CPT/HCPCS: 36415; 36600; 71045; 71250; 80048; 80053; 80305; 81003; 82375; 82805; 83880; 84484; 85025; 85027; 87804; 93005; 93970; 94640; 97161; 99285; J0456; J0696; J1650; J2920; J2930; J3475; J7060; J7512; J7626